=== PATIENT | female | born 1950 | race Caucasian/White ===

== ENCOUNTER → 2017-07-08 | Outpatient (CLI) | payer OTHER ==
[~2017-07-08] MED LIST: ATEN50 PO; ATOR20 PO; CALCIUM PO; FLAX PO; LISI20 PO; MULTI VITAMIN1 EACH PO
== END ==
LOC: PLD 08:52 → LAB SHORT 08:52
DX: D22.5 Melanocytic nevi of trunk (principal)
CPT/HCPCS: 88305

== ENCOUNTER → 2021-08-15 | Outpatient (CLI) | payer OTHER | LOC: LAB SHORT 10:10 | DX: E55.9 Vitamin D deficiency, unspecified (principal) | CPT/HCPCS: 82306 ==

== ENCOUNTER 2022-01-31 09:57 | Observation (INO) | payer OTHER ==
[~2022-01-31] VITALS: Ht 165.1 cm; Wt 72.6 kg
[~2022-01-31 09:57] MED LIST changes: +Lutein6 MG PO; +MAGNESIUM OXID500 MG PO; +METAMUCIL POWD575 GM PO; +OMEGA-3 + VITA200 ML PO
[2022-01-31 11:01] LABS: BASOPHILS ABSOLUTE AUTO 0.05 K/mm3 (0.00-0.23); BASOPHILS PERCENT AUTO 1 % (0-2); EOSINOPHILS ABSOLUTE AUTO 0.08 K/mm3 (0.00-0.68); EOSINOPHILS PERCENT AUTO 1 % (0-6); Hematocrit 42.7 % (33.0-51.0); Hemoglobin 14.1 g/dL (11.5-16.0); IMMATURE GRAN ABSOLUTE AUTO 0.01 K/mm3 (0.00-0.10); IMMATURE GRAN PERCENT AUTO 0 % (0-1); LYMPHOCYTES ABSOLUTE AUTO 1.32 K/mm3 (0.84-5.20); LYMPHOCYTES PERCENT AUTO 19 % (21-46); MONOCYTES ABSOLUTE AUTO 0.74 K/mm3 (0.16-1.47); MONOCYTES PERCENT AUTO 10 % (4-13); Mean Corpuscular HGB 30.4 pg (26.0-34.0); Mean Corpuscular Volume 92 fL (80-100); Mean Platelet Volume 9.1 fL (9.1-12.4); NEUTROPHILS ABSOLUTE AUTO 4.94 K/mm3 (1.96-9.15); NEUTROPHILS PERCENT AUTO 69 % (41-73); Platelet Count 248 K/mm3 (150-400); RDW Coefficient Variation 12.8 % (11.7-14.2); RDW Standard Deviation 43.2 fL (35.1-46.3); Red Blood Cell Count 4.64 M/mm3 (3.80-5.20); White Blood Cell Count 7.14 K/mm3 (4.00-11.30)
[2022-01-31 11:11] LABS: Albumin, Blood 3.5 g/dL (3.4-5.0); Bilirubin, Direct 0.2 mg/dL (0.0-0.3); Bilirubin, Indirect 0.5 mg/dL (0.1-0.7); Bilirubin, Total 0.7 mg/dL (0.1-1.0); Calcium, Blood 8.8 mg/dL (8.5-10.1); Creatinine, Blood 0.81 mg/dL (0.40-1.00); Globulin, Blood 3.6 g/dL (2.2-4.0); Potassium, Blood 3.9 mmol/L (3.5-5.5); Total Protein, Blood 7.1 g/dL (6.4-8.2)
[2022-01-31 12:42] LABS: International Normalized Ratio 1.04; Prothrombin Time Results 10.9 Sec (9.7-11.5)
--- NOTE | 2022-01-31 18:37 | NUR ---
SHIFT SUMMARY NEW ADMIT TO UNIT FROM ER FOR CHOLECYSTITIS. ADMITTED BY DR LEES FOR PLANNED CHOLECYSTECTOMY TOMORROW 01/31/22. MEDICAL CARDIAC CLEARANCE FOR SURGERY COMPLETED BY DR FROST. ALERT AND ORIENTED AND INDEPENDENT IN THE ROOM. TOLERATING CLEARS, VOIDING WELL. SALINE LOCKED AT THIS TIME. RUQ PAIN AND NAUSEA MEDICATED PER EMAR. NPO AFTER MIDNIGHT. PRE-OP CLEANSE COMPLETE.
[2022-02-01 05:17] LABS: BASOPHILS ABSOLUTE AUTO 0.03 K/mm3 (0.00-0.23); BASOPHILS PERCENT AUTO 0 % (0-2); EOSINOPHILS ABSOLUTE AUTO 0.01 K/mm3 (0.00-0.68); EOSINOPHILS PERCENT AUTO 0 % (0-6); Hematocrit 38.5 % (33.0-51.0); Hemoglobin 12.9 g/dL (11.5-16.0); IMMATURE GRAN ABSOLUTE AUTO 0.02 K/mm3 (0.00-0.10); IMMATURE GRAN PERCENT AUTO 0 % (0-1); LYMPHOCYTES ABSOLUTE AUTO 0.95 K/mm3 (0.84-5.20); LYMPHOCYTES PERCENT AUTO 14 % (21-46); MONOCYTES ABSOLUTE AUTO 0.64 K/mm3 (0.16-1.47); MONOCYTES PERCENT AUTO 9 % (4-13); Mean Corpuscular HGB 31.2 pg (26.0-34.0); Mean Corpuscular HGB Conc 33.5 g/dL (31.5-36.5); Mean Corpuscular Volume 93 fL (80-100); Mean Platelet Volume 9.1 fL (9.1-12.4); NEUTROPHILS ABSOLUTE AUTO 5.35 K/mm3 (1.96-9.15); NEUTROPHILS PERCENT AUTO 77 % (41-73); Platelet Count 220 K/mm3 (150-400); RDW Coefficient Variation 12.8 % (11.7-14.2); Red Blood Cell Count 4.13 M/mm3 (3.80-5.20)
[2022-02-01 05:54] LABS: Albumin, Blood 3.1 g/dL (3.4-5.0); Albumin/Globulin Ratio 0.9 (0.8-1.8); Bun/Creatinine Ratio 16.1 (12.0-20.0); Calcium, Blood 8.5 mg/dL (8.5-10.1); Creatinine, Blood 0.81 mg/dL (0.40-1.00); Globulin, Blood 3.4 g/dL (2.2-4.0); Potassium, Blood 4.2 mmol/L (3.5-5.5); Total Protein, Blood 6.5 g/dL (6.4-8.2)
--- NOTE | 2022-02-01 12:31 | NUR ---
02/01/22 1231 Elva Carter PATIENT ON SCHEDULED ANTIBIOTICS
--- NOTE | 2022-02-01 16:55 | NUR ---
SHIFT SUMMARY PT A&OX4, VSS/RA, SOPHIE PO FLD, VOIDING WELL, AMB INDEPENDENT IN ROOM TO BRP/UP TO CHAIR, DENIES PAIN/NEED FOR PAIN MEDICATION, I.S. & TCDB EDU/ENC/PT DEMONSTRATED AND ENC TO CONTINUE Q1H WHILE AWAKE. S/P LAP MAURY, 4 STERI SITES DRY/INTACT. WILL REPORT TO ONCOMING NOC RN.
--- NOTE | 2022-02-02 05:28 | NUR ---
WRITER PRODUCER SUMMARY PT IS POD 0 FOR A LAP MAURY. PT HAS TOLERATED REGULAR PO DIET WITH NO N/V. UP IN ROOM INDEPENDENTLY, HAS VOIDED AND HAD A BM SINCE SURGERY. PT HAS DENIED ANY PAIN MEDS TONIGHT AND HAS SLEPT WELL THROUGH THE NIGHT. VSS, WILL CONTINUE TO MONITOR.
[2022-02-02] MEDS ORDERED: ACET325 PO (11:03)
[2022-02-02] MEDS ORDERED: HYDR1TAB94 PO (11:04)
--- NOTE | 2022-02-02 13:08 | NUR ---
PT DISCHARGED TO HOME. PT REPORTS PAIN IS WELL CONTROLLED, VOIDING CLEAR YELLOW URINE. SOPHIE PO FOOD AND FLUIDS WITHOUT NAUSEA. STERI STRIPS DRY AND INTACT TO ABD INCISIONS. PT IN AGREEMENT WITH PLAN TO DISCHARGE HOME
== END 2022-02-02 13:00 | disposition home or self-care (01) ==
LOC: ER 09:57 → SURS 09:58
PROVIDERS: Student in an Organized Health Care Education/Training Program; ADMIT Surgery
DX: K80.12 Calculus of gallbladder with acute and chronic cholecystitis without obstruction (principal); I10 Essential (primary) hypertension; E78.00 Pure hypercholesterolemia, unspecified; M19.90 Unspecified osteoarthritis, unspecified site; M85.80 Other specified disorders of bone density and structure, unspecified site; R94.31 Abnormal electrocardiogram [ECG] [EKG]; Z88.8 Allergy status to other drugs, medicaments and biological substances
CPT/HCPCS: 36415; 74300; 76705; 80048; 80053; 80076; 83690; 84484; 85025; 85610; 85730; 86850; 86900; 86901; 88304; 93005; 93010; 96374; 96375; 99285-25; A9270; C1894; J0694; J0696; J1100; J1170; J1885; J2250; J2405; J2704; J2795; J3010; J7030; J7120

== ENCOUNTER 2023-02-27 16:41 | Emergency (ER) | payer OTHER ==
[~2023-02-27] VITALS: Ht 165.1 cm; Wt 77.1 kg
[~2023-02-27 16:41] MED LIST changes: +ACET325 PO; +HYDR1TAB94 PO
[2023-02-27 17:40] VITALS: BP 151/85
== END 2023-02-27 18:10 | disposition home or self-care (01) ==
LOC: ER 16:41
DX: K59.00 Constipation, unspecified (principal); I10 Essential (primary) hypertension; Z88.8 Allergy status to other drugs, medicaments and biological substances; Z79.899 Other long term (current) drug therapy
CPT/HCPCS: 74018; 99283-25; A9270

== ENCOUNTER 2024-07-31 12:48 | Emergency (ER) | payer OTHER ==
[~2024-07-31] VITALS: Ht 165.1 cm; Wt 74.4 kg
[2024-07-31] MEDS ORDERED: Ondansetron HCl 2 MG / ML 2ML Vial IV ONE ×2 (13:00→16:05)
[2024-07-31 14:10] LABS: BASOPHILS ABSOLUTE AUTO 0.02 K/mm3 (0.00-0.23); BASOPHILS PERCENT AUTO 0 % (0-2); EOSINOPHILS ABSOLUTE AUTO 0.03 K/mm3 (0.00-0.68); EOSINOPHILS PERCENT AUTO 1 % (0-6); Hematocrit 47.5 % (33.0-51.0); Hemoglobin 16.4 g/dL (11.5-16.0); IMMATURE GRAN ABSOLUTE AUTO 0.01 K/mm3 (0.00-0.10); IMMATURE GRAN PERCENT AUTO 0 % (0-1); LYMPHOCYTES ABSOLUTE AUTO 0.23 K/mm3 (0.84-5.20); LYMPHOCYTES PERCENT AUTO 4 % (21-46); MONOCYTES ABSOLUTE AUTO 0.26 K/mm3 (0.16-1.47); MONOCYTES PERCENT AUTO 4 % (4-13); Mean Corpuscular HGB 31.8 pg (26.0-34.0); Mean Corpuscular HGB Conc 34.5 g/dL (31.5-36.5); Mean Corpuscular Volume 92 fL (80-100); NEUTROPHILS PERCENT AUTO 91 % (41-73); Platelet Count 208 K/mm3 (150-400); RDW Standard Deviation 44.1 fL (35.1-46.3); Red Blood Cell Count 5.15 M/mm3 (3.80-5.20); White Blood Cell Count 5.95 K/mm3 (4.00-11.30)
[2024-07-31 14:30] LABS: Albumin, Blood 3.9 g/dL (3.4-5.0); Albumin/Globulin Ratio 1.2 (0.8-1.8); Bilirubin, Total 1.3 mg/dL (0.1-1.0); Bun/Creatinine Ratio 20.6 (12.0-20.0); Calcium, Blood 8.8 mg/dL (8.5-10.1); Creatinine, Blood 1.07 mg/dL (0.40-1.00); Globulin, Blood 3.3 g/dL (2.2-4.0); Potassium, Blood 3.5 mmol/L (3.5-5.5); Total Protein, Blood 7.2 g/dL (6.4-8.2)
[2024-07-31] MEDS ORDERED: METO100ER PO (15:48)
[2024-07-31] MEDS ORDERED: HYDCHL25 PO (15:49)
[2024-07-31] MEDS ORDERED: METO50ER PO (15:50)
[2024-07-31] MEDS ORDERED: NS 1,000 ML IV SCH (15:55)
[2024-07-31] MEDS ORDERED: ONDA4ODT MM (17:26)
[2024-07-31 17:40] VITALS: BP 123/64
== END 2024-07-31 17:53 | disposition home or self-care (01) ==
LOC: ER 12:48
PROVIDERS: Physician Assistant
DX: A05.9 Bacterial foodborne intoxication, unspecified (principal); I10 Essential (primary) hypertension; Z59.89 Other problems related to housing and economic circumstances; Z88.8 Allergy status to other drugs, medicaments and biological substances; Z88.5 Allergy status to narcotic agent
CPT/HCPCS: 80053; 85025; 96374; 99284-25; J2405; J7030

== ENCOUNTER → 2024-09-28 | Outpatient (CLI) | payer OTHER ==
[~2024-09-28] MED LIST changes: +HYDCHL25 PO; +METO100ER PO; +METO50ER PO; +ONDA4ODT MM
[2024-09-30 15:06] LABS: CALPROTECTIN,FECAL 10 ug/g (<=49)
== END ==
LOC: LAB SHORT 05:25 → LAB 05:25
DX: K52.9 Noninfective gastroenteritis and colitis, unspecified (principal)
CPT/HCPCS: 83993